=== PATIENT | female | born 1960 | race Caucasian/White ===

== ENCOUNTER 2024-05-16 17:49 | Emergency (ER) | payer MEDICAID ==
[~2024-05-16] VITALS: Ht 152.4 cm; Wt 73.5 kg
[2024-05-16 17:52] VITALS: BP 144/85; TEMP 99.2; O2SAT 99
[2024-05-16] MEDS: IV NS 0.9% 1,000 ML BAG IV ONE ×2 (18:30→21:12)
[2024-05-16 18:34] LABS: BASOPHILS % (AUTO) 0.3 % (0.0-2.0); HEMATOCRIT 43 % (33-45); HEMOGLOBIN 14.3 g/dL (11.5-14.8); LYMPHOCYTES # (AUTO) 1.3 K/uL (0.8-4.8); LYMPHOCYTES % (AUTO) 8.4 % (20.0-44.0); MEAN CORPUSCULAR HEMOGLOBIN 30 PG (26.0-33.0); MEAN CORPUSCULAR HGB CONC 34 g/dl (31.0-36.0); MEAN CORPUSCULAR VOLUME 88 fL (82-100); MONOCYTES # (AUTO) 0.6 K/uL (0.1-1.30); MONOCYTES % (AUTO) 4.1 % (2.0-12.0); NEUTROPHILS # (AUTO) 13.6 K/uL (1.8-8.9); NEUTROPHILS % (AUTO) 87.2 % (43.0-81.0); PLATELET COUNT (AUTO) 335 K/uL (150-450); RED BLOOD CELL COUNT(AUTO) 4.86 MIL/uL (4.0-5.2); RED CELL DISTRIBUTION WIDTH 13.1 % (11.5-15.0); WHITE BLOOD COUNT (AUTO) 15.6 K/uL (4.3-11.0)
[2024-05-16 18:42] LABS: CREATININE 0.7 mg/dL (0.6-1.3); POTASSIUM 3.4 mmol/L (3.5-5.1)
[2024-05-16] MEDS: FAMOTIDINE/PF INJ 20 MG/2 ML VIAL IV ONE (18:45)
[2024-05-16] MEDS: MORPHINE SULFATE INJ 2 MG/ML DISP.SYRIN IV ONE (18:45)
[2024-05-16] MEDS: ONDANSETRON HCL/PF 4 MG/2 ML VIAL IVP ONE (18:45)
[2024-05-16 18:47] LABS: ALBUMIN 4.4 g/dL (3.4-5.0); BILIRUBIN,DIRECT 0.1 mg/dL (0.0-0.2); BILIRUBIN,TOTAL 0.6 mg/dL (0.2-1.0); TOTAL PROTEIN, SERUM 8.3 g/dL (6.4-8.2)
[2024-05-16] MEDS ORDERED: MORPHINE SULFATE INJ 2 MG/ML DISP.SYRIN ONE (18:52)
[2024-05-16] MEDS ORDERED: ONDANSETRON HCL/PF 4 MG/2 ML VIAL ONE (18:53)
[2024-05-16] MEDS ORDERED: FAMOTIDINE/PF INJ 20 MG/2 ML VIAL IV ONE (18:54)
[2024-05-16] MEDS ORDERED: HYDROMORPHONE 1 MG/1 ML DISP.SYRIN ONE ×2 (19:36→22:46)
[2024-05-16] MEDS: HYDROMORPHONE INJ 2 MG/ML DISP.SYRIN IV ONE (19:43)
[2024-05-16] MEDS ORDERED: METRONIDAZOLE 500MG/ NS 100ML 100 ML IV ONE (20:46)
[2024-05-16] MEDS ORDERED: CIPROFLOXACIN IV RTU 200 ML IV ONE (20:46)
[2024-05-16 20:59] LABS: LACTIC ACID 2.1 mmol/L (0.4-2.0)
[2024-05-16] MEDS: METRONIDAZOLE 500MG/ NS 100ML 500 MG in PREMIX 1 EA IV SCH (21:00)
[2024-05-16] MEDS: CIPROFLOXACIN IV RTU 400 MG in PREMIX 1 EA IV SCH (21:13)
[2024-05-16] MEDS: HYDROMORPHONE 1 MG/1 ML DISP.SYRIN IV ONE (22:51)
== END 2024-05-17 01:32 | disposition short-term general hospital (02) ==
LOC: ER 17:51
DX: K81.0 Acute cholecystitis (principal); R10.11 Right upper quadrant pain; R11.2 Nausea with vomiting, unspecified; E11.9 Type 2 diabetes mellitus without complications; E03.9 Hypothyroidism, unspecified; I10 Essential (primary) hypertension; Z88.0 Allergy status to penicillin; Z98.84 Bariatric surgery status
CPT/HCPCS: 99285; 74176; 96365; 96375; 76705; 96366; 96361; 96368; 93005; 96376; 85025; 80048; 87040; 83605 ×2; 83690; 80076; 36415; J3490; J2405; J7030; A4216 ×2; J0744 ×2; J2270; J1170 ×2